=== PATIENT | male | born 1975 | race Caucasian/White ===

== ENCOUNTER 2018-04-13 14:23 | Emergency (ER) | payer SELFPAY ==
[~2018-04-13] VITALS: Ht 185.4 cm; Wt 99.8 kg
[2018-04-13] MEDS ORDERED: KETOROLAC 30 MG/ML VIAL. IV ONE (14:45)
[2018-04-13] MEDS ORDERED: IV NORMAL SALINE 1000ML BAG 1,000 ML IV ONE (14:45)
[2018-04-13] MEDS ORDERED: FAMOTIDINE 20 MG/2 ML VIAL IVP ONE (14:45)
[2018-04-13] MEDS ORDERED: ONDANSETRON PF 4 MG/2 ML VIAL. IV ONE (14:45)
--- NOTE | 2018-04-13 14:54 | PHYS DOC ---
Past Medical History Past Medical History: Depression, Hypothyroid Additional Past Medical Histor: PVC Past Surgical History: Other Additional Past Surgical Histo: HERNIA REPAIR, RHINOPLASTY Alcohol Use: Heavy Drug Use: None Adult General Chief Complaint Chief Complaint: ALCOHOL INTOXICATION HPI HPI Patient is a 42 year old male who presents with having 4-5 shots and 4-5 beers last night and has now vomited twice today. Review of Systems Review of Systems Constitutional: Denies fever or chills [] Eyes: Denies change in visual acuity, redness, or eye pain [] HENT: Headache. Denies nasal congestion or sore throat [] Respiratory: Denies cough or shortness of breath [] Cardiovascular: No additional information not addressed in HPI [] GI: Abdominal pain, nausea, vomiting. Denies bloody stools or diarrhea [] : Denies dysuria or hematuria [] Musculoskeletal: Denies back pain or joint pain [] Integument: Denies rash or skin lesions [] Neurologic: Headache. Denies focal weakness or sensory changes [] All other systems were reviewed and found to be within normal limits, except as documented in this note. Current Medications Current Medications Current Medications Medications (Trade) Dose Ordered Sig/Tabitha Start Time Stop Time Status Last Admin Dose Admin Famotidine (Pepcid Vial) 20 mg 1X ONCE 04/13/18 14:45 04/13/18 14:46 DC 04/13/18 15:05 20 MG Info (CONTRAST GIVEN -- Rx MONITORING) 1 each PRN DAILY PRN 04/13/18 15:15 04/15/18 15:14 Iohexol (Omnipaque 300 Mg/ml) 75 ml 1X ONCE 04/13/18 15:15 04/13/18 15:16 DC 04/13/18 15:35 75 ML Ketorolac Tromethamine (Toradol 30mg Vial) 30 mg 1X ONCE 04/13/18 14:45 04/13/18 14:46 DC 04/13/18 15:05 30 MG Ondansetron HCl (Zofran) 4 mg 1X ONCE 04/13/18 14:45 04/13/18 14:46 DC 04/13/18 15:05 4 MG Sodium Chloride 1,000 ml @ 1,000 mls/hr 1X ONCE 04/13/18 14:45 04/13/18 15:44 DC 04/13/18 15:05 1,000 MLS/HR Allergies Allergies Allergies Coded Allergies Type Severity Reaction Last Updated Verified nortriptyline Allergy Intermediate 04/13/18 Yes Physical Exam Physical Exam Constitutional: Well developed, well nourished, no acute distress, non-toxic appearance. [] HENT: Normocephalic, atraumatic, bilateral external ears normal, oropharynx moist, no oral exudates, nose normal. [] Eyes: PERRLA, EOMI, conjunctiva normal, no discharge. [] Neck: Normal range of motion, no tenderness, supple, no stridor. [] Cardiovascular:Heart rate regular rhythm, no murmur [] Lungs & Thorax: Bilateral breath sounds clear to auscultation [] Abdomen: Bowel sounds normal, soft, right lower quad tenderness, no masses, no pulsatile masses. [] Skin: Warm, dry, no erythema, no rash. [] Back: No tenderness, no CVA tenderness. [] Extremities: No tenderness, no cyanosis, no clubbing, ROM intact, no edema. [] Neurologic: Alert and oriented X 3, normal motor function, normal sensory function, no focal deficits noted. [] Psychologic: Affect normal, judgement normal, mood normal. [] Current Patient Data Vital Signs Vital Signs Date Time Temp Pulse Resp B/P (MAP) Pulse Ox O2 Delivery O2 Flow Rate FiO2 04/13/18 14:40 98.4 55 18 119/63 (81) 100 Room Air 98.4 Lab Values Laboratory Tests Test 04/13/18 15:04 04/13/18 15:50 White Blood Count 9.1 x10^3/uL (4.0-11.0) Red Blood Count 5.33 x10^6/uL (4.30-5.70) Hemoglobin 16.6 g/dL (13.0-17.5) Hematocrit 47.5 % (39.0-53.0) Mean Corpuscular Volume 89 fL (79-100) Mean Corpuscular Hemoglobin 31 pg (25-35) Mean Corpuscular Hemoglobin Concent 35 g/dL (31-37) Red Cell Distribution Width 14.6 % (11.5-14.5) H Platelet Count 154 x10^3/uL (140-400) Neutrophils (%) (Auto) 86 % (31-73) H Lymphocytes (%) (Auto) 10 % (24-48) L Monocytes (%) (Auto) 4 % (0-9) Eosinophils (%) (Auto) 0 % (0-3) Basophils (%) (Auto) 0 % (0-3) Neutrophils # (Auto) 7.9 x10^3uL (1.8-7.7) H Lymphocytes # (Auto) 0.9 x10^3/uL (1.0-4.8) L Monocytes # (Auto) 0.4 x10^3/uL (0.0-1.1) Eosinophils # (Auto) 0.0 x10^3/uL (0.0-0.7) Basophils # (Auto) 0.0 x10^3/uL (0.0-0.2) Segmented Neutrophils % 78 % (35-66) H Band Neutrophils % 7 % (0-9) Lymphocytes % 9 % (24-48) L Atypical Lymphocytes % (Manual) 4 % (0-0) H Monocytes % 2 % (0-10) Platelet Estimate Adequate (ADEQUATE) Sodium Level 141 mmol/L (136-145) Potassium Level 4.6 mmol/L (3.5-5.1) Chloride Level 105 mmol/L (98-107) Carbon Dioxide Level 24 mmol/L (21-32) Anion Gap 12 (6-14) Blood Urea Nitrogen 19 mg/dL (8-26) Creatinine 0.9 mg/dL (0.7-1.3) Estimated GFR (Cockcroft-Gault) 93.0 Glucose Level 84 mg/dL (70-99) Calcium Level 9.1 mg/dL (8.5-10.1) Ethyl Alcohol Level < 10 mg/dL (0-10) Urine Collection Type Unknown Urine Color Yellow Urine Clarity Clear Urine pH 7.0 Urine Specific [place] >=1.030 Urine Protein Negative mg/dL (NEG-TRACE) Urine Glucose (UA) Negative mg/dL (NEG) Urine Ketones (Stick) >=80 mg/dL (NEG) Urine Blood Negative (NEG) Urine Nitrite Negative (NEG) Urine Bilirubin Negative (NEG) Urine Urobilinogen Dipstick 1.0 mg/dL (0.2 mg/dL) Urine Leukocyte Esterase Negative (NEG) Urine RBC Occ /HPF (0-2) Urine WBC 0 /HPF (0-4) Urine Squamous Epithelial Cells Few /LPF Urine Bacteria 0 /HPF (0-FEW) Urine Mucus Mod /LPF Urine Opiates Screen Neg (NEG) Urine Methadone Screen Neg (NEG) Urine Barbiturates Neg (NEG) Urine Phencyclidine Screen Neg (NEG) Urine Amphetamine/Methamphetamine Neg (NEG) Urine Benzodiazepines Screen Neg (NEG) Urine Cocaine Screen Neg (NEG) Urine Cannabinoids Screen Neg (NEG) Urine Ethyl Alcohol Pos (NEG) Laboratory Tests 04/13/18 15:04 Laboratory Tests 04/13/18 15:04 EKG EKG Normal sinus rhythm, no STEMI and read Dr. Veloz.[] Interpretation Time: 1616 Radiology/Procedures Radiology/Procedures CT ABDOMEN PELVIS Impressions: [facility] [address] [place] [address] IMAGING REPORT Signed PATIENT: FAMILIA HOUSE ACCOUNT: [id number] : 1975 LOCATION: ER AGE: 42 SEX: M EXAM STATUS: REG ER ORD. PHYSICIAN: JASIEL DAVIDSON PICK UP REASON: Right lower quad pain PROCEDURE: CT ABD PELV W/ IV CONTRST ONLY PQRS Compliance statement: One or more of the following individualized dose reduction techniques were utilized for this examination: 1. Automated exposure control. 2. Adjustment of the mA and/or kV according to patient size. 3. Use of iterative reconstruction technique. Indication:right lower quadrant abd pain with nausea/vomiting x2days delayed that. No priors, hx of prior inguinal hernia repair TECHNIQUE: CT abdomen and pelvis with IV contrast with multiplanar reformats. COMPARISON: None FINDINGS: Heart is normal in size. No pericardial or pleural effusion. 5 mm groundglass nodule in the right lower lobe. Liver, spleen, gallbladder, pancreas, adrenals and kidneys are within normal limits. No enlarged retroperitoneal or pelvic adenopathy. No free pelvic fluid or ascites. Shotty mesenteric lymph nodes, nonspecific but likely reactive. No bowel obstruction. Terminal ileum within normal limits. Appendix is visualized and is within normal limits. No right lower quadrant inflammatory changes. Urinary bladder within normal limits. The prostate and seminal vesicles show no large mass. No suspicious bony lesion. IMPRESSION: 1. No nephrolithiasis or hydronephrosis. 2. No bowel obstruction. Normal appendix. 3. Solitary groundglass pulmonary nodule in the right lower lobe, nonspecific. Follow-up CT chest in 3-4 months recommended. Electronically signed by: Juan Dior DO (04/13/2018 3:50 PM) [facility] – [place] DICTATED and SIGNED BY: JUAN DIOR DO DATE: 04/13/18 1544 Course & Med Decision Making Course & Med Decision Making Patient is a 42 year old male who presents with having 4-5 shots and 4-5 beers last night and has now vomited twice today. Patient states that he usually drinks twice a week and may be only has a couple beers when he does usually drink. Patient states does not smoke or do drugs. Patient is allergic to nortriptyline. Patient takes no medications daily and has a past history of PVCs and hyperthyroidism. Patient states today he has vomited twice and has upper and lower mid GI pain. Patient states the vomiting did not contain blood. Patient states like he feels like he may start to have diarrhea with the lower abdominal cramping. Patient states he does have a headache. Patient abdomen is soft and is only tender with palpation in the right lower quadrant. Patient rates his cramping abdominal pain a 7 out of 10. Patient is alert and oriented. Patient denies soa or chest pain. Patient denies LOC or hitting his head or falling and injuring himself. Skin is pink warm and dry. There is no edema to any extremities. Patient is to receive a bolus of normal saline, Zofran, Pepcid , Toradol. Patient is alert and oriented. Due to the patients right lower abdominal tenderness the patient will receive a CT scan to evaluate the patients appendix. Blood work is unremarkable. Alcohol level is less than 10. CT ABD PELV shows 1. No nephrolithiasis or hydronephrosis. 2. No bowel obstruction. Normal appendix. 3. Solitary ground glass pulmonary nodule in the right lower lobe, nonspecific. Follow-up CT chest in 3-4 months recommended. Patient is negative for any drugs in his urine. Patient is negative for inner tract infection. Patient PO challenged and did not vomit. Patient be discharged home and to follow-up with his primary care if needed and to drink fluids other than alcohol use to keep hydrated. EKG shows normal sinus rhythm without STEMI. [] Dragon Disclaimer Dragon Disclaimer This electronic medical record was generated, in whole or in part, using a voice recognition dictation system. Departure Departure Impression: Primary Impression: ETOH abuse Disposition: 01 HOME, SELF-CARE Condition: STABLE Referrals: NO PCP (PCP) Patient Instructions: Alcohol Intoxication Additional Instructions: Drink fluids as tolerated. Take medications as prescribed. Scripts Ondansetron (ONDANSETRON ODT) 4 Mg Tab.rapdis 4 MG PO BID PRN for NAUSEA/VOMITING, #10 TAB Prov: JASIEL DAVIDSON APRN 04/13/18 JASIEL DAVIDSON APRN Apr 13, 2018 14:54
[2018-04-13] MEDS ORDERED: CONTRAST GIVEN. MC PRN (15:15)
[2018-04-13] MEDS ORDERED: IOHEXOL 300 MG/ML 100ML VIAL. IV ONE (15:15)
[2018-04-13 15:21] LABS: BASO % 0 % (0-3); EOS % 0 % (0-3); HEMATOCRIT 47.5 % (39.0-53.0); HEMOGLOBIN 16.6 g/dL (13.0-17.5); LYMPH # 0.9 x10^3/uL (1.0-4.8); LYMPH % 10 % (24-48); MEAN CORPUSCULAR HEMOGLOBIN 31 pg (25-35); MEAN CORPUSCULAR HGB CONC 35 g/dL (31-37); MEAN CORPUSCULAR VOLUME 89 fL (79-100); MONO # 0.4 x10^3/uL (0.0-1.1); MONO % 4 % (0-9); NEUT # 7.9 x10^3uL (1.8-7.7); NEUT % 86 % (31-73); PLATELET COUNT 154 x10^3/uL (140-400); RED BLOOD COUNT 5.33 x10^6/uL (4.30-5.70); RED CELL DISTRIBUTION WIDTH 14.6 % (11.5-14.5); WHITE BLOOD COUNT 9.1 x10^3/uL (4.0-11.0)
[2018-04-13 15:24] LABS: CALCIUM 9.1 mg/dL (8.5-10.1); CREATININE 0.9 mg/dL (0.7-1.3); POTASSIUM 4.6 mmol/L (3.5-5.1)
[2018-04-13 15:43] LABS: % ATYL 4 % (0-0); % BANDS 7 % (0-9); % LYMPHS 9 % (24-48); % MONOS 2 % (0-10); % SEGS 78 % (35-66); PLT ESTIMATE ADEQUATE (ADEQUATE)
--- NOTE | 2018-04-13 15:53 | RAD ---
PQRS Compliance statement: One or more of the following individualized dose reduction techniques were utilized for this examination: 1. Automated exposure control. 2. Adjustment of the mA and/or kV according to patient size. 3. Use of iterative reconstruction technique. Indication:right lower quadrant abd pain with nausea/vomiting x2days delayed that. No priors, hx of prior inguinal hernia repair TECHNIQUE: CT abdomen and pelvis with IV contrast with multiplanar reformats. COMPARISON: None FINDINGS: Heart is normal in size. No pericardial or pleural effusion. 5 mm groundglass nodule in the right lower lobe. Liver, spleen, gallbladder, pancreas, adrenals and kidneys are within normal limits. No enlarged retroperitoneal or pelvic adenopathy. No free pelvic fluid or ascites. Shotty mesenteric lymph nodes, nonspecific but likely reactive. No bowel obstruction. Terminal ileum within normal limits. Appendix is visualized and is within normal limits. No right lower quadrant inflammatory changes. Urinary bladder within normal limits. The prostate and seminal vesicles show no large mass. No suspicious bony lesion. IMPRESSION: 1. No nephrolithiasis or hydronephrosis. 2. No bowel obstruction. Normal appendix. 3. Solitary groundglass pulmonary nodule in the right lower lobe, nonspecific. Follow-up CT chest in 3-4 months recommended. Electronically signed by: Juan Dior DO (04/13/2018 3:50 PM) [facility] [place]
[2018-04-13 16:00] LABS: BILIRUBIN,URINE NEGATIVE (NEG); CLARITY,URINE CLEAR; COLOR,URINE YELLOW; NITRITE,URINE NEGATIVE (NEG); PROTEIN,URINE NEGATIVE (NEG-TRACE)
[2018-04-13 16:06] LABS: BARBITURATES NEG (NEG); BENZODIAZEPINES NEG (NEG); CANNABINOIDS NEG (NEG); COCAINE NEG (NEG); METHADONE NEG (NEG); OPIATES NEG (NEG); PHENCYCLIDINE NEG (NEG)
[2018-04-13 16:07] LABS: AMPHETAMINE/METHAMPHETAMINE NEG (NEG)
[2018-04-13 16:11] LABS: RBC,URINE OCC /HPF (0-2)
[2018-04-13 16:12] LABS: BACTERIA,URINE 0 /HPF (0-FEW); SQUAMOUS EPITHELIAL CELL,UR FEW /LPF; WBC,URINE 0 /HPF (0-4)
[2018-04-13] MEDS ORDERED: ONDA4TAB12 PO (16:28)
[2018-04-13 17:00] VITALS: BP 105/51
--- NOTE | 2018-04-13 17:24 | EKG ---
[facility] [address] [place] [address] Test Date: 2018-04-13 Test Time: 16:16:50 Pat Name: FAMILIA HOUSE Department: Room: Gender: M Interior Design Consultant: : 1975 Requested By: JASIEL DAVIDSON Order Number: [id number] Reading MD: Prashant Ulloa MD Measurements Intervals [place] Rate: 61 P: 28 GA: 150 QRS: 76 QRSD: 96 T: 9 QT: 434 QTc: 443 Interpretive Statements SINUS RHYTHM Electronically Signed On 04-15-2018 9:05:17 CDT by Prashant Ulloa MD
== END 2018-04-13 17:22 | disposition home or self-care (01) ==
LOC: ER 14:23
DX: F10.20 Alcohol dependence, uncomplicated (principal); R11.2 Nausea with vomiting, unspecified; F32.9 Major depressive disorder, single episode, unspecified; E03.9 Hypothyroidism, unspecified; R51 Headache; R10.31 Right lower quadrant pain; Z88.8 Allergy status to other drugs, medicaments and biological substances; Y90.0 Blood alcohol level of less than 20 mg/100 ml
CPT/HCPCS: 36415; 74177; 80048; 80307; 81001; 85007; 85025; 93005; 96361; 96374; 96375; 99285; G0480; J1885; J2405; J7030; Q9967; S0028; G0479